=== PATIENT | female | born 1985 | race Caucasian/White ===

== ENCOUNTER 2019-04-17 08:24 | Emergency (ER) | payer OTHER, MEDICAID, SELFPAY ==
[2019-04-17 08:55] VITALS: BP 129/80; PULSE 83; RESP 14; TEMP 37; O2SAT 99
[2019-04-17 09:14] LABS: RBC Urine None Seen (0-5/HPF)
[2019-04-17 09:15] LABS: Appearance Urine UA CLEAR; Bilirubin Urine UA NEGATIVE (NEGATIVE); Color Urine UA YELLOW; Glucose Urine UA TRACE g/dL (Negative); Ketones Urine UA NEGATIVE (NEGATIVE); Leukocyte Esterase Urine UA 1+ (NEGATIVE); Nitrite Urine UA NEGATIVE (Negative); Occult Blood Urine UA NEGATIVE (Negative); Protein Urine UA NEGATIVE (Negative); Urobilinogen Urine UA 0.2 E.U./dL (0.2)
[2019-04-17 09:18] LABS: Pregnancy Test Urine Negative (Negative); pH Urine UA 5.5 (4.5-8.0)
[2019-04-17 09:25] LABS: Bacteria Urine Few (2-10); Culture Indicated Urine Specimen Cultured; Squamous Epithelial Cell Urine 1-5 /HPF (0-5/HPF); WBC Urine 1-5/HPF (0-5/HPF)
--- NOTE | 2019-04-17 11:29 | PC.NURSE ---
Chaperoned pelvic exam with CORI Roblero.
[2019-04-17 11:40] VITALS: BP 135/80; PULSE 85; RESP 14; O2SAT 98
--- NOTE | 2019-04-17 12:01 | ED.FEMALEGU ---
HPI - Female Genitourinary <TEZ Fernandez - Last Filed: 04/17/19 20:07> General Chief complaint: Urogenital-Female Stated complaint: female problems Time Seen by Provider: 04/17/19 09:11 Source: patient Mode of arrival: Ambulatory Limitations: no limitations History of Present Illness HPI Narrative: This is a 33 year female, nonsmoker, who presents to ED with chief complain of pinching sensation with sitting and she noticed bloody vaginal discharge. Last LMP was 3 weeks ago and she is usually very regular with her period. Patient has history of general herpes, HPV infection. Last Pap smear test was 1 year ago and she had cervical biopsy done. Last biopsy and Pap smear test was negative for HPV. She was advised to follow up in 5 years for routine Pap smear and HPV test. She also reports low back pain and mild discomfort with urination. Patient denies fever, chills, nausea or vomiting. She is sexually active and has no concerns for STIs. Patient recently completed 2 week course of steroids for upper respiratory infection and laryngitis. . She is currently taking metformin 500 mg b.i.d. for medical weight loss. Related Data Previous Rx's Medication Instructions Recorded metronidazole [Flagyl] 500 mg PO BID 7 Days #14 tab 04/17/19 nitrofurantoin monohyd/m-cryst 100 mg PO BID 5 Days #10 cap 04/17/19 [Macrobid] Review of Systems <TEZ Fernandez - Last Filed: 04/17/19 20:07> Review of Systems Narrative: General: Denies fever, chills, fatigue, malaise, sweats. HEENT: Denies sinus pain, ear pain, sore throat, difficulty swallowing, dizziness. Respiratory: Denies dyspnea, cough, wheezing, hemoptysis, sputum. Cardiovascular: Denies chest pain, palpitations, orthopnea, edema. Gastrointestinal: Denies nausea, vomiting, abdominal pain, diarrhea, constipation, melena. : See HPI Musculoskeletal: Denies weakness, joint pain or bony pain. Skin: Denies rash, skin lesions, or other. Neurologic: Denies weakness, headache, numbness, change in speech, confusion, seizures, incoordination. Psychiatric: No concerning psychosocial issues. 12-point review of systems is negative except for those stated above. Patient History <Osbaldo JonTEZ Crews - Last Filed: 04/17/19 20:07> Medical History HPV (human papilloma virus) anogenital infection (Acute) HSV (herpes simplex virus) anogenital infection (Acute) Surgical History H/O cervical biopsy (Acute) Smoking Status: Never smoker Substance Use Type: does not use Exam <TEZ Fernandez - Last Filed: 04/17/19 20:07> Narrative Exam Narrative: GEN: Alert, oriented x 3, well appearing and nourished, appears to be apprehensive. Head: Normal cephalic, atraumatic. No scalp or temporal tenderness, palpable mass or rash. EYES: Pupils are equal, round, and reactive to light and accommodation. Extraocular muscles are intact bilaterally. There is no subconjunctival hemorrhage, exudate and sclera non-icteric. ENT: Bilateral auditory canals and tympanic membranes clear. Hearing grossly intact. Nose without bleeding, purulent discharge or deviation. Facial sinuses nontender to palpate. Mucous membrane moist, no mucosal lesion. Throat without erythema, tonsillar hypertrophy or exudate. Uvula in midline, airway patent. Neck: Trachea in midline. No JVD, non-tender without lymphadenopathy. No masses or thyroid megaly. Supple, non-tender and no meningeal signs. CARDIAC: Normal regular rate and rhythm without murmurs, gallops, or rubs. No chest wall tenderness. No peripheral edema, cyanosis or pallor. Capillary refill is less than 2 seconds. RESPIRATORY: Lungs are clear to auscultate bilaterally. No cough, wheezes, rales, or rhonchi. No stridor, respiratory distress, increase work of breathing, or accessary muscle used. ABD: Abdomen soft, nontender and non-distended. No guarding or rebound tenderness to palpate. Bowel sounds are normal in all 4 quadrants. There is no palpable masses or organomegaly. EXT: Full painless ROM of all extremities with no loss of sensation, strength, effusion or edema. SKIN: Warm, dry, normal color for patient. No erythema, lesions or rash over visible areas. BACK: Nontender without deformity or crepitance. No flank tenderness. NEUROLOGICAL: Alert and oriented to place, time and person. Sensation and motor function intact bilaterally. No facial droops, dysphasia. PSYCHIATRIC: Good judgement and reason, without hallucinations, abnormal affect or abnormal behaviors during the examination. Patient is not suicidal. Initial Vital Signs Initial Vital Signs: Vital Signs Temperature 98.6 F 04/17/19 08:55 Pulse Rate 83 04/17/19 08:55 Respiratory Rate 14 04/17/19 08:55 Blood Pressure 129/80 04/17/19 08:55 Pulse Oximetry 99 04/17/19 08:55 General: No CVA tenderness External Female Exam: external appearance normal Speculum Exam - Vagina: normal appearance of the vagina, not erythematous, no foreign bodies, no masses and no swelling Speculum Exam - Cervix: normal appearance of the cervix, closed cervix, no lesions and cervical tenderness Bimanual Exam- Vagina & Uterus: normal bimanual exam, normal cervical palpation, uterine mobility normal, cervical tenderness, no cervical motion tenderness and uterus soft Bimanual Exam- Adnexa, other: no adnexal masses and adnexae non-tender OB/External & Speculum: external exam normal, bleeding (light blood mixed vaginal discharge), no foreign bodies, no vaginal laceration, no vulvar erythema, no vulvar tenderness and vaginal discharge <Kenyatta Bearden MD - Last Filed: 04/17/19 20:30> Initial Vital Signs Initial Vital Signs: Vital Signs Temperature 98.6 F 04/17/19 08:55 Pulse Rate 83 04/17/19 08:55 Respiratory Rate 14 04/17/19 08:55 Blood Pressure 129/80 04/17/19 08:55 Pulse Oximetry 99 04/17/19 08:55 Scores <TEZ Fernandez - Last Filed: 04/17/19 20:07> GCS [place] coma scale eye opening: Spontaneous [place] coma scale verbal response: Orientated [place] coma scale motor response: Obey commands [place] coma scale total score: 15 Course <TEZ Fernandez - Last Filed: 04/17/19 20:07> Orders Ordered: ED Orders 04/17/19 11:19 Chlamydia/Gonorrhea RNA APTIMA Stat Genital Culture Stat Wet Prep Tric BV Sanna Stat Vital Signs Vital signs: Vital Signs - 8 hr 04/17/19 08:55 04/17/19 11:40 Temperature 98.6 F Pulse Rate 83 85 Respiratory Rate 14 14 Blood Pressure 129/80 135/80 Pulse Oximetry 99 98 <Kenyatta Bearden MD - Last Filed: 04/17/19 20:30> Orders Ordered: ED Orders 04/17/19 11:19 Chlamydia/Gonorrhea RNA APTIMA Stat Genital Culture Stat Wet Prep Tric BV Sanna Stat Vital Signs Vital signs: Vital Signs - 8 hr 04/17/19 08:55 04/17/19 11:40 Temperature 98.6 F Pulse Rate 83 85 Respiratory Rate 14 14 Blood Pressure 129/80 135/80 Pulse Oximetry 99 98 MDM - Female Genitourinary <TEZ Fernandez - Last Filed: 04/17/19 20:07> Differential Diagnosis Differential diagnosis: Likely urinary tract infection, bacterial vaginosis, cervicitis, ovarian cyst, vaginitis and other (Fibroids, at topic ) Medical Records Attestation: I reviewed the patient's medical records. Lab Data Attestation: I reviewed the patient's lab results. Labs: Lab Results 04/17/19 04/17/19 Range/Units 09:05 09:05 Urine Color Yellow Urine Appearance Clear Urine pH 5.5 (4.5-8.0) Ur Specific [place] 1.020 (1.000-1.035) Urine Protein Negative (Negative) Urine Glucose (UA) Trace H (Negative) g/dL Urine Ketones Negative (NEGATIVE) Urine Occult Blood Negative (Negative) Urine Nitrate Negative (Negative) Urine Bilirubin Negative (NEGATIVE) Urine Urobilinogen 0.2 (0.2) E.U./dL Ur Leukocyte Esterase 1+ H (NEGATIVE) Urine RBC None seen (0-5/HPF) Urine WBC 1-5/hpf (0-5/HPF) Ur Squamous Epith Cells 1-5 /hpf (0-5/HPF) Urine Bacteria Few (2-10) H (None) Ur Culture Indicated? Specimen cultured Micro UA Comment Urine Test Negative (Negative) MDM Narrative Medical decision making narrative: The patient is a 33-year-old female who presents to ED with pinching sensation in her pelvic area with thin bloody vaginal discharge. LMP 3 weeks ago and the patient is sexually active but does not have concerns for STIs. Patient reports mild dysuria without constitutional symptoms but reports back pain. Urine test was negative. UA test shows urine leukoesterase without nitrites. This may due to contaminated urine sample with epithelia cells and urine is being cultured at this time. Pelvic exam shows no cervical motion tenderness or palpable adnexa noted. Pelvic exam did show thin, watery vaginal mucus mixed with light blood without lesions in external or internal genital. Patient is afebrile Wet prep test shows few clue cells. Patient has history of general herpes and HPV in the past. Patient was discharged to home with antibiotic medications for Macrobid for 5 day course and informed that she will be contacted when the general culture result comes back. Patient agrees with the treatment plan and all questions were answered prior discharged to home. Patient called during afternoon to follow up on for culture test. Patient was informed that clue cell was seen and will treat her with bacteria vaginosis with Flagyl for 7 day course. Patient verbalized understanding. Patient also informed that she will get in touch when the rest of the culture results come back and if she needs further antibiotic medication treatment or if the antibiotic medication needs change and verbalized understanding and agrees with the treatment plan. <Kenyatta Bearden MD - Last Filed: 04/17/19 20:30> Lab Data Labs: Lab Results 04/17/19 04/17/19 Range/Units 09:05 09:05 Urine Color Yellow Urine Appearance Clear Urine pH 5.5 (4.5-8.0) Ur Specific [place] 1.020 (1.000-1.035) Urine Protein Negative (Negative) Urine Glucose (UA) Trace H (Negative) g/dL Urine Ketones Negative (NEGATIVE) Urine Occult Blood Negative (Negative) Urine Nitrate Negative (Negative) Urine Bilirubin Negative (NEGATIVE) Urine Urobilinogen 0.2 (0.2) E.U./dL Ur Leukocyte Esterase 1+ H (NEGATIVE) Urine RBC None seen (0-5/HPF) Urine WBC 1-5/hpf (0-5/HPF) Ur Squamous Epith Cells 1-5 /hpf (0-5/HPF) Urine Bacteria Few (2-10) H (None) Ur Culture Indicated? Specimen cultured Micro UA Comment Urine Test Negative (Negative) Discharge Plan Departure Patient Disposition: Home Clinical Impression: Bacterial vaginosis Urinary tract infection Qualifiers: Urinary tract infection type: site unspecified Hematuria presence: without hematuria Qualified Code(s): N39.0 - Urinary tract infection, site not specified Discharge Date/Time: 04/17/19 11:40 Instructions: DI for Urinary Tract Infection (UTI) Activity Restrictions/Additional Instructions: You have been diagnosed with [urinary tract infection. Vaginal culture and urine cultures are pending at this time. Will get a phone call he needed additional antibiotic medication coverage for pelvic infection or if requires antibiotic medication medication change for UTI. The medication has been transmitted to [facility]]. What to do: *Take your medications as directed. Please start antibiotic medication today. *Follow up with your primary care provider in 2-3 days, call for an appointment. Let them know you were seen in the ED and that we asked you to be seen in follow up. 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 *Return to ED if you have any new, worsening, or concerning symptoms, such as [fever, breathing difficulty, chest pain, flank pain, purulent discharge or any acute concerns.]. The patient called and informed for clue cell in vaginal culture and RX of Flagyl sent to [facility] in [place] for bid dose for 7 days. Prescriptions: New nitrofurantoin monohyd/m-cryst [Macrobid] 100 mg capsule 100 mg PO BID 5 Days Qty: 10 RF: 0 metronidazole [Flagyl] 500 mg tablet 500 mg PO BID 7 Days Qty: 14 RF: 0 Referrals: Yoel Muñoz [Non-Staff] -
== END 2019-04-17 11:40 | disposition home or self-care (01) ==
PROVIDERS: Emergency Medicine; Emergency Provider Nurse Practitioner Family
DX: N76.0 Acute vaginitis (principal); N39.0 Urinary tract infection, site not specified
CPT/HCPCS: 81001; 81025; 87070; 87077; 87086; 87205; 87210; 87491; 87591; 99282; 99283

== ENCOUNTER 2019-06-01 08:34 | Emergency (ER) | payer OTHER, MEDICAID, SELFPAY ==
[2019-06-01 08:41] VITALS: BP 144/91; PULSE 87; RESP 16; TEMP 36.7; O2SAT 98; BMI 38.6
[2019-06-01 09:00] VITALS: BP 133/85; PULSE 80; RESP 16; O2SAT 98
[2019-06-01] MEDS: OXYCODONE/ACETAMINOPHEN 5/325 TABLET 1 TAB PO (09:58)
--- NOTE | 2019-06-01 10:11 | ED.BACK ---
HPI - Back Pain/Injury General Chief Complaint: Back Pain/Injury Stated Complaint: 'my back' Time Seen by Provider: 06/01/19 08:39 Source: patient Mode of arrival: Ambulatory Limitations: no limitations History of Present Illness HPI Narrative: Patient comes emergency department complaining of right lower back pain that started last night. Patient states that after sleeping in bed all night, her back seems to her worse. Patient states she did not do anything specifically to injure her back that she can think of. She states she was working around the house and may have aggravated it thereby. Patient states she has a history of low back problems and says this feels similar but that she also has somewhat of a sharp pain along with the usual spasming pain. She denies any dysuria or abdominal pain. No bowel or bladder incontinence. No nausea or vomiting. No fevers. No neurologic symptoms. No pain shooting down her leg. Patient is 5 weeks , and she wants to make sure of what she can safely take for the pain. No other complaints at this time. Related Data Home Medications Medication Instructions Recorded Confirmed bupropion HCl 150 mg PO DAILY 06/01/19 06/01/19 metformin 500 mg PO BID 06/01/19 Previous Rx's Medication Instructions Recorded oxycodone-acetaminophen [Percocet] 1 tab PO Q6H PRN #10 tab 06/01/19 Allergies Allergy/AdvReac Type Severity Reaction Status Date / Time citalopram [From Celexa] Allergy Verified 06/01/19 09:27 codeine Allergy Verified 06/01/19 09:27 erythromycin base Allergy Verified 06/01/19 09:27 hydrocodone Allergy Verified 06/01/19 09:27 Review of Systems Review of Systems ROS Unobtainable: All systems reviewed & are unremarkable except as noted in HPI and below Constitutional Constitutional: Denies chills, Denies fatigue, Denies fever(s), Denies frequent falls, Denies lethargy and Denies weakness Eyes Eyes: Denies change in vision, Denies eye discharge, Denies irritation and Denies loss of vision ENT Ears, Nose, Mouth, and Throat: Denies change in voice, Denies dizziness, Denies neck pain, Denies sore throat and Denies throat swelling Cardiovascular Cardiovascular: Denies chest pain, Denies irregular heart rhythm, Denies lightheadedness, Denies palpitations, Denies dyspnea, Denies dyspnea on exertion and Denies orthopnea Respiratory Respiratory: Denies cough, Denies dyspnea, Denies dyspnea on exertion and Denies wheezing Gastrointestinal Gastrointestinal: Denies abdominal pain, Denies change in bowel habits, Denies diarrhea, Denies nausea and Denies vomiting Genitourinary Genitourinary: Denies hematuria, Denies flank pain, Denies urinary incontinence and Denies urinary urgency Musculoskeletal Musculoskeletal: Reports back pain, Denies muscle weakness, Denies neck pain, Denies numbness and Denies tingling Integumentary/Breasts Skin/Breast: Denies pruritus, Denies erythema, Denies rash and Denies wounds Neurologic Neurologic: Denies behavioral changes, Denies confusion, Denies dizziness, Denies frequent falls, Denies loss of vision, Denies numbness, Denies tingling and Denies weakness Psychiatric Psychiatric: Denies anxiety, Denies behavioral changes, Denies confusion, Denies depression, Denies homicidal ideation and Denies suicidal ideation Endocrine Endocrine: Denies fatigue, Denies flushing and Denies palpitations Hematologic/Lymphatic Hematologic/Lymphatic: Denies easy bruising Allergic/Immunologic Allergic/Immunologic: Denies urticaria, Denies throat swelling and Denies wheezing Patient History Medical History (Updated 06/01/19 @ 10:30 by Kenyatta Bearden MD) Chronic low back pain (Acute) HPV (human papilloma virus) anogenital infection (Acute) HSV (herpes simplex virus) anogenital infection (Acute) Surgical History H/O cervical biopsy (Acute) Social History Smoking Status: Never smoker Smoking Status: Never smoker Substance Use Type: does not use Exam Initial Vital Signs Initial Vital Signs: Vital Signs Temperature 98.0 F 06/01/19 08:41 Pulse Rate 87 06/01/19 08:41 Respiratory Rate 16 06/01/19 08:41 Blood Pressure 144/91 H 06/01/19 08:41 Pulse Oximetry 98 06/01/19 08:41 Const General: cooperative and well developed Nutritional Appearance: well nourished Orientation: alert, awake, oriented x3 and not confused [facility] Head: normocephalic and atraumatic Ears: external ears normal Nose: external nose normal and No nasal discharge Face and sinus: face symmetric and No dry mucous membranes Mouth: oral mucosae normal and moist mucous membranes Teeth and gingiva: dentition normal Eyes General: appearance normal, both eyes and all related structures Eyelids: eyelids normal Conjunctivae: conjunctivae normal Sclera: sclerae normal Pupils: PERRL EOM: EOM intact bilaterally Neck Neck: normal visual inspection, trachea midline, No lymphadenopathy, No midline deformity and No JVD Lymphatic: No lymphedema Chest Chest: normal inspection of the chest Resp Effort & Inspection: normal respiratory effort, able to speak in complete sentences, no respiratory distress and no use of accessory muscles Auscultation: clear to auscultation bilaterally, no rales, no rhonchi and no wheezes Cardio Rate: regular rate Rhythm: regular rhythm Heart Sounds: no click, no gallops, no murmurs and no rubs Pulses: normal peripheral pulses GI Inspection: non-distended Palpation: soft, no hepatosplenomegaly, No guarding, No pulsatile mass and No tender Auscultation: normal bowel sounds Back/Spine/Pelvis Back: No CVA tenderness Cervical Spine: cervical ROM normal and No pain with cervical ROM Thoracic/Lumbar Spine: thoracic and lumbar spine normal to inspection Other: Patient has mild tenderness palpation over the right lumbar paraspinal musculature. Skin General: no rashes or lesions noted, No jaundice and No petechiae Neuro General: alert, oriented x3 and no focal motor deficits Cranial Nerves: CN's II-XI intact bilaterally Cognition: normal cognition Speech: speech normal Gait: other (Patient walks stiffly but steadily on a narrow based gait.) Motor: muscle tone normal throughout and strength 5/5 throughout Sensory Exam: no sensory deficits noted Extrem General: full ROM, no clubbing, cyanosis or edema, no pedal edema and no calf tenderness Psych Appearance: well kempt Mental Status: mental status grossly normal Attitude: cooperative Thought Content: normal and suicidality Judgment: judgment good Course Course Course Narrative: Patient was treated symptomatically in the emergency department with a dose of oxycodone, after which was found to be feeling improved. We've discussed home management of the symptoms, as well as the usual indications for return. The patient is and has OB follow-up already. Orders Ordered: Discontinued Medications Ondansetron HCl (Zofran Odt) 4 mg SL NOW ONE Stop: 06/01/19 10:41 Last Admin: 06/01/19 10:45 Dose: 4 mg Documented by: ARTURO Oxycodone/Acetaminophen (Percocet 5/325) 1 tab PO NOW ONE Stop: 06/01/19 09:35 Last Admin: 06/01/19 09:58 Dose: 1 tab Documented by: BTONER Vital Signs Vital signs: Vital Signs - 8 hr 06/01/19 08:41 06/01/19 09:00 Temperature 98.0 F Pulse Rate 87 80 Respiratory Rate 16 16 Blood Pressure 144/91 H Blood Pressure [Left Arm] 133/85 Pulse Oximetry 98 98 MDM - Back Pain/Injury Medical Records Attestation: I reviewed the patient's medical records. Lab Data Attestation: I reviewed the patient's lab results. Labs: Point of Care Testing Test Results Positive Urine Dip Bedside Urine Glucose 250 mg/dl Bedside Urine Bilirubin - Negative Bedside Urine Ketone - Negative Urine Specific [place] 1.010 Bedside Urine Occult Blood - Negative Bedside Urine pH 7.0 Bedside Urine Protein - Negative Bedside Urine Urobilinogen - Negative Bedside Urine Nitrite - Negative Bedside Urine Leukocytes - Negative Esterase Discharge Plan Departure Patient Disposition: Home Clinical Impression: Acute exacerbation of chronic low back pain Discharge Date/Time: 06/01/19 11:07 Instructions: DI for Low Back Pain Activity Restrictions/Additional Instructions: You may take 1/2 to 1 tablets of the Percocet every 4-6 hours, as needed for pain. Please minimize this, considering that you are , and use only if your pain gets bad. Otherwise, you may use plain Tylenol. Prescriptions: New oxycodone-acetaminophen [Percocet] 5-325 mg tablet 1 tab PO Q6H PRN (Reason: pain) Qty: 10 RF: 0 No Action metformin 500 mg tablet 500 mg PO BID RF: 0 bupropion HCl 150 mg tablet extended release 24 hr 150 mg PO DAILY RF: 0 Referrals: [facility] [Provider Group]
[2019-06-01] MEDS: ONDANSETRON 4 MG ODT SL (10:45)
[2019-06-01 10:47] VITALS: BP 137/87; PULSE 80; RESP 16; O2SAT 99
== END 2019-06-01 11:07 | disposition home or self-care (01) ==
PROVIDERS: Emergency Provider Emergency Medicine
DX: M54.5 Low back pain (principal)
CPT/HCPCS: 81003; 81025; 99282; 99283

== ENCOUNTER → 2019-06-27 12:06 | Outpatient (CLI) | payer OTHER, MEDICAID, SELFPAY ==
[2019-06-27 18:11] LABS: Urine N gonorrhoeae NOT DETECTED
[2019-06-27 18:13] LABS: Urine Chlamydia NOT DETECTED
== END ==
PROVIDERS: Visit Provider Obstetrics & Gynecology
DX: Z34.81 Encounter for supervision of other normal pregnancy, first trimester (principal)
CPT/HCPCS: 87491; 87591

== ENCOUNTER → 2019-06-27 12:27 | Outpatient (CLI) | payer OTHER, MEDICAID, SELFPAY ==
[2019-06-27 14:05] LABS: Add Manual Diff / Slide Review NO; Basophils Absolute Auto 0 /uL (0-100); Basophils Percent Auto 0.3 % (0-2); Eosinophils Absolute Auto 100 /uL (0-450); Eosinophils Percent Auto 1.2 % (2-4); Hematocrit 41.5 % (36-46); Hemoglobin 14.3 g/dL (12.0-16.0); Lymphocytes Absolute Auto 2200 /uL (1100-4500); Lymphocytes Percent Auto 26.5 % (25-40); Mean Corpuscular HGB Conc 34.4 % (30-36); Mean Corpuscular Hemoglobin 30.5 PG (26-34); Mean Corpuscular Volume 88.6 fL (80-100); Monocytes Absolute Auto 600 /uL (0-900); Monocytes Percent Auto 7.9 % (3-14); Neutrophils Absolute Auto 5200 /uL (1500-7000); Neutrophils Percent Auto 64.1 % (50-75); Platelet Count 229 X10^3/uL (150-400); Red Blood Cell Count 4.68 X10^6/uL (4.0-5.2); Red Cell Distribution Width 12.7 % (11.6-14.8); White Blood Cell Count 8.1 X10^3/uL (4.5-11.0)
[2019-06-27 14:14] LABS: Hemoglobin A1C% w Est Avg Glu 5.8 % (4.0-6.0)
[2019-06-27 14:26] LABS: Glucose 98 mg/dL (70-100)
[2019-06-27 15:08] LABS: Hepatitis B Surface Antigen NEGATIVE s/c (NEGATIVE); Rubella Antibody IgG 7.4 IU/mL (>15)
[2019-06-27 15:16] LABS: HIV 1 & 2 Ab/Ag 4th Gen Combo NEGATIVE (NEGATIVE); Hep C Virus Ab w/Reflex Quant NEGATIVE s/c (NEGATIVE)
[2019-06-27 16:03] LABS: Appearance Urine UA CLEAR; Bilirubin Urine UA NEGATIVE (NEGATIVE); Color Urine UA YELLOW; Glucose Urine UA 1+ g/dL (Negative); Ketones Urine UA NEGATIVE (NEGATIVE); Leukocyte Esterase Urine UA NEGATIVE (NEGATIVE); Nitrite Urine UA NEGATIVE (Negative); Occult Blood Urine UA NEGATIVE (Negative); Protein Urine UA NEGATIVE (Negative)
[2019-06-29 14:34] LABS: HSV 1 IgM Screen Negative (Negative); HSV 2 IgM Screen Negative (Negative)
[2019-06-29 18:00] LABS: RPR Screen Nonreactive (Nonreactive)
== END ==
PROVIDERS: PCP Obstetrics & Gynecology; Visit Provider Obstetrics & Gynecology
DX: Z34.81 Encounter for supervision of other normal pregnancy, first trimester (principal)
CPT/HCPCS: 36415; 80055; 81003; 82947; 83036; 86695; 86696; 86787; 86803; 86850; 86900; 86901; 87086; 87389; 87491; 87591

== ENCOUNTER → 2019-07-10 11:07 | Outpatient (CLI) | payer OTHER, MEDICAID, SELFPAY ==
[2019-07-10 13:54] LABS: GTT (PREG) 1 Hour PP 50gm Dose 185 mg/dL (76-139)
[2019-07-10 14:11] LABS: Free T4, Direct Thyroxine 0.75 ng/dL (0.78-2.19)
[2019-07-10 14:25] LABS: Thyroid Stimulating Hormone 0.42 uIU/mL (0.47-4.68)
== END ==
PROVIDERS: PCP Obstetrics & Gynecology; Visit Provider Obstetrics & Gynecology
DX: E04.9 Nontoxic goiter, unspecified (principal); Z86.32 Personal history of gestational diabetes
CPT/HCPCS: 36415; 82950; 84439; 84443

== ENCOUNTER → 2019-07-14 08:33 | Outpatient (CLI) | payer OTHER, MEDICAID, SELFPAY | PROVIDERS: Visit Provider Obstetrics & Gynecology | DX: O09.529 Supervision of elderly multigravida, unspecified trimester (principal); Z34.91 Encounter for supervision of normal pregnancy, unspecified, first trimester | CPT/HCPCS: 36415; 81420 ==

== ENCOUNTER → 2019-07-18 08:31 | Outpatient (CLI) | payer OTHER, MEDICAID, SELFPAY ==
[2019-07-18 10:19] LABS: Glucose Fasting 102 mg/dL (70-100)
[2019-07-18 10:44] LABS: Glucose 1 Hour 245 mg/dL (70-170)
[2019-07-18 11:49] LABS: Glucose Tol Interpretation INTERPRETATION
[2019-07-18 12:29] LABS: Glucose 2 Hour 222 mg/dL (70-140)
[2019-07-18 12:50] LABS: Glucose 3 Hour 116 mg/dL (70-115)
== END ==
PROVIDERS: PCP Physician Assistant Medical; Referring Provider Obstetrics & Gynecology; Visit Provider Obstetrics & Gynecology
DX: O99.810 Abnormal glucose complicating pregnancy (principal); Z34.93 Encounter for supervision of normal pregnancy, unspecified, third trimester
CPT/HCPCS: 36415; 82951; 82952

== ENCOUNTER 2019-07-21 05:40 | Emergency (ER) | payer OTHER, MEDICAID, SELFPAY ==
[2019-07-21 05:46] VITALS: BP 138/71; PULSE 107; RESP 20; TEMP 36.3; O2SAT 97
--- NOTE | 2019-07-21 05:56 | DI.US.S_ITS ---
PROCEDURE: US OB <= 14 WEEKS FETUS INDICATIONS: SEVERE CRAMPING OUTSIDE/PRIOR DATING DATA: Last menstrual period (LMP): 04/24/19. LMP-based estimated date of delivery (MACO): 01/29/20. First dating scan (date and location): 07/21/19, [facility] Estimated date of delivery (MACO) from first dating scan: 01/28/20. TECHNIQUE: Real-time scanning was performed of the fetus and maternal pelvic organs, with image documentation. Endovaginal scanning was also performed to better visualize the fetus and maternal ovaries. COMPARISON: [facility], , OB <= 14 WEEKS FETUS, 06/27/2019, 12:09. FINDINGS: Embryo: [place]-rump length with a heartbeat measuring 6.37 cm, 12 weeks 5 days, with a heartbeat measuring 150 beats per minute Measurement variability in dating: +/- 4 weeks by LMP, +/- 7 days by mean sac diameter (use before 6 weeks gestation if crown-rump length not able to be measured), +/- 5 days by crown-rump length (up to 8 weeks 6 days gestation), +/- 7 days by crown-rump length (up to 13 weeks 6 days gestation). Maternal organs: Ovaries not visualized. Limited images through the kidneys demonstrate no hydronephrosis. IMPRESSION: Living late first trimester intrauterine with crown-rump length and heartbeat. Dictated by: Surinder Li M.D. on 07/21/2019 at 8:15 Approved by: Surinder Li M.D. on 07/21/2019 at 8:18
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
[2019-07-21] MEDS: SODIUM CHLORIDE 0.9% 1,000 ML 1000 ML IV ×2 (06:20→07:39)
[2019-07-21 06:23] LABS: Add Manual Diff / Slide Review NO; Basophils Absolute Auto 0 /uL (0-100); Basophils Percent Auto 0.4 % (0-2); Eosinophils Absolute Auto 100 /uL (0-450); Hematocrit 40.9 % (36-46); Hemoglobin 14.2 g/dL (12.0-16.0); Lymphocytes Absolute Auto 2700 /uL (1100-4500); Lymphocytes Percent Auto 24.7 % (25-40); Mean Corpuscular HGB Conc 34.6 % (30-36); Mean Corpuscular Hemoglobin 30.3 PG (26-34); Mean Corpuscular Volume 87.8 fL (80-100); Monocytes Absolute Auto 700 /uL (0-900); Monocytes Percent Auto 6.7 % (3-14); Neutrophils Absolute Auto 7500 /uL (1500-7000); Neutrophils Percent Auto 67.2 % (50-75); Platelet Count 223 X10^3/uL (150-400); Red Blood Cell Count 4.66 X10^6/uL (4.0-5.2); Red Cell Distribution Width 12.9 % (11.6-14.8); White Blood Cell Count 11.1 X10^3/uL (4.5-11.0)
--- NOTE | 2019-07-21 06:23 | PC.NURSE ---
Pt in triage with triage nurse, pt became lightheaded and diaphoretic. able to get patient to w/c at into bed. EKG was ordered, bs checked, and IV started. after patient was laid flat in bed, pt started to feel better.
[2019-07-21 06:30] LABS: Alanine Aminotransferase 17 IU/L (<35); Albumin 4.2 g/dL (3.5-5.0); Albumin Globulin Ratio 1.3 (1.0-2.8); Alkaline Phosphatase 48 U/L (38-126); Aspartate Aminotransferase 20 IU/L (14-36); Bilirubin Total 0.6 mg/dL (0.2-1.3); Blood Urea Nitrogen 7 mg/dL (7-17); Calcium 9.9 mg/dL (8.4-10.2); Carbon Dioxide 21 mmol/L (22-32); Chloride 101 mmol/L (98-107); Estimated Glomerular Filt Rate > 60.0 mL/min (>60); Globulin 3.3 g/dL (1.7-4.1); Glucose 147 mg/dL (70-100); HEMOLYSIS 16 (0-50); Lipase 53 U/L (23-300); Potassium 3.5 mmol/L (3.4-5.1); Sodium 134 mmol/L (137-145); Total Protein 7.5 g/dL (6.3-8.2)
[2019-07-21 07:12] LABS: HCG Quantitative /Beta subunit 56252 mIU/mL
--- NOTE | 2019-07-21 07:25 | PC.NURSE ---
Answered pts call gayathri, stated she needed to have a BM. Assisted pt to bedside commode. While on commode pt stated she felt like she was going to pass out again. With PRESSER MACHINE and RN assistance pt returned to bed. Dr. Cavazos informed and ordered more IV fluids.
[2019-07-21 07:30] VITALS: BP 129/76; PULSE 98; RESP 12; O2SAT 98
[2019-07-21 08:04] LABS: Bacteria Urine Many (>30); Ictotest Urine Negative (Negative); RBC Urine None Seen (0-5/HPF); Squamous Epithelial Cell Urine 10-30 /HPF (0-5/HPF); Uric Acid Crystals Urine Few; WBC Urine 1-5/HPF (0-5/HPF)
[2019-07-21 08:05] LABS: Culture Indicated Urine Cult Not Indicated
[2019-07-21] MEDS: ACETAMINOPHEN 325 MG TABLET 975 MG PO (08:10)
[2019-07-21] MEDS: METOCLOPRAMIDE 10 MG/2 ML INJ IV (08:11)
--- NOTE | 2019-07-21 08:20 | PC.NURSE ---
Pt had moderate amount of stool with BM. Also urinated.
[2019-07-21 09:00] VITALS: BP 133/86; PULSE 98; RESP 15; O2SAT 99
--- NOTE | 2019-07-21 09:15 | PC.NURSE ---
Pt had 3 large loose bowel movements.
--- NOTE | 2019-07-21 10:05 | PC.NURSE ---
Pt used bedside commode. States she feels much better. No longer cramping at this time.
[2019-07-21 10:25] VITALS: BP 122/80; PULSE 98; RESP 18; O2SAT 98
== END 2019-07-21 10:25 | disposition home or self-care (01) ==
PROVIDERS: Emergency Medicine; Emergency Provider Emergency Medicine; PCP Physician Assistant Medical
DX: O26.891 Other specified pregnancy related conditions, first trimester (principal); K59.00 Constipation, unspecified; R00.0 Tachycardia, unspecified; Z3A.12 12 weeks gestation of pregnancy
CPT/HCPCS: 36415; 76801; 76817; 80053; 81003; 81015; 82962; 83690; 84443; 84702; 85025; 93005; 96361; 96374; 99285; J2765

== ENCOUNTER → 2019-08-22 12:14 | Outpatient (CLI) | payer OTHER, MEDICAID, SELFPAY ==
--- NOTE | 2019-08-22 14:33 | DIET.PN ---
INITIAL GESTATIONAL DIABETES ASSESSMENT ASSESS:? Mrs. Vincent is a 34 yof referred for Gestational Diabetes. She is 16 weeks 2 days by first-trimester ultrasound. Patient's is complicated by pre gestational diabetes, for which she is being seen at the [facility]. Patient has history of preeclampsia and GDM with prior . She has an A1c of 5.8 (Jun 2019) and has been monitoring her BG 6-8x/day related to her medication regimen. She requested visit with this RD as she admits she does not truly understand carbohydrate counting and is eager to control her blood glucose without use of additional medication. She was recently seen in the ED for constipation which she is now taking Reglan and Metamucil for. Her diet consists of primarily starches, starchy vegetables, milk, Dr. Gurrola and protein. ? MACO:?Jan [birth year] ? WKS GESTATION:?? 16 or 17 wks ?LABS: A1c: 5.8; OGTT 1 hr: 185 FB-99 pre-meal: 90-120 1hr PP: 95-200 ? MEDS: metf 1000 mg BID; lantus 26 u pm; Novolog 2 u brkfst; reglan PRN SUPPLEMENTS: vit, vit B, magnesium, Metamucil ? DIET:? B: toast w/ PB; taco trinh crunchwrap; pancakes w/ pb; eggs, mancuso, cheese, potato hash L: [employer] blueberry muffin w/ milk D: steak or chicken w/ pasta, potatoes, corn ? HT:? 65? PRE-PREG WT:? 232lb ? PRE-PREG BMI:??? 38.6 ? CURRENT WT : 240 lb ? TOTAL WT GAIN:? 8 lb EXERCISE: walking (when not too tired) NUTRITION DX 1. Altered nutrition related lab values r/t gestational diabetes as evidenced by recent labs (OGGT). INTERVENTION 1. Discussed pathophysiology of gestational diabetes and impact of hormone and nutrition/diet on blood sugar control.? Discussed fed versus non-fed state.? 2. Recommended checking fasting, premeal and 1hr post prandial (3x/day).? Discussed goals for glycemic control (<95 FBG, <140 1-hr PP).? 3. Discussed the effect of carbohydrates/protein/fat on blood sugar control.? Stressed importance of consistent carbohydrate intake at each meal and provided instructions for recommended servings/portions of carbohydrates/protein per meal.? Provided pt with educational material. 4. Introduced carbohydrate counting and measuring carbohydrate content via servings sizes and reading nutrition labels.? Provided handouts.? Pt will need further review 5. Discussed importance of meal timing and not going >3 hours between meals.? Provided sample meal schedule for pt.? Pt agreeable.?? 6. Discussed importance a pre-lucia vitamin and including food sources of calcium, vitamin D, iron and folic acid for baby and mother?s nutrition support. 7. Discussed caffeine intake. Recommend no more than 200 mg/day (1 cup coffee). 8. Discussed rule of 15 for hypoglycemia. 9. Recommend patient purchase Urine Ketone strips and instructed on use and when to contact provider. 10.Recommended patient continue exercise as appropriate per PCP approval. 11.Patient may need medication management, will follow-up with plan of care at next visit after reviewing glucose results.? MONITOR/EVAL: Follow up scheduled X 1 week. Good compliance expected. Review: carb sources, carb counting, portion size, meal timing, BG log, weight.
== END ==
PROVIDERS: PCP Physician Assistant Medical; Referring Provider Physician Assistant Medical; Visit Provider Physician Assistant Medical
DX: O24.415 Gestational diabetes mellitus in pregnancy, controlled by oral hypoglycemic drugs (principal); Z3A.16 16 weeks gestation of pregnancy; Z71.3 Dietary counseling and surveillance
CPT/HCPCS: G0108

== ENCOUNTER → 2019-08-24 08:38 | Outpatient (CLI) | payer OTHER, MEDICAID, SELFPAY ==
[2019-08-24 09:22] LABS: Add Manual Diff / Slide Review NO; Basophils Absolute Auto 0 /uL (0-100); Basophils Percent Auto 0.2 % (0-2); Eosinophils Absolute Auto 100 /uL (0-450); Eosinophils Percent Auto 1.2 % (2-4); Hematocrit 39.2 % (36-46); Hemoglobin 13.4 g/dL (12.0-16.0); Lymphocytes Absolute Auto 1800 /uL (1100-4500); Lymphocytes Percent Auto 16.8 % (25-40); Mean Corpuscular HGB Conc 34.2 % (30-36); Mean Corpuscular Hemoglobin 30.4 PG (26-34); Mean Corpuscular Volume 88.9 fL (80-100); Monocytes Absolute Auto 600 /uL (0-900); Monocytes Percent Auto 5.4 % (3-14); Neutrophils Absolute Auto 8100 /uL (1500-7000); Neutrophils Percent Auto 76.4 % (50-75); Platelet Count 203 X10^3/uL (150-400); Red Blood Cell Count 4.41 X10^6/uL (4.0-5.2); Red Cell Distribution Width 12.8 % (11.6-14.8); White Blood Cell Count 10.6 X10^3/uL (4.5-11.0)
[2019-08-24 09:49] LABS: Hemoglobin A1C% w Est Avg Glu 5.5 % (4.0-6.0)
[2019-08-24 10:08] LABS: Alanine Aminotransferase 19 IU/L (<35); Aspartate Aminotransferase 23 IU/L (14-36); Blood Urea Nitrogen 9 mg/dL (7-17); Estimated Glomerular Filt Rate > 60.0 mL/min (>60); Uric Acid 3.8 mg/dL (2.5-6.2)
== END ==
PROVIDERS: PCP Physician Assistant Medical; Referring Provider Obstetrics & Gynecology; Visit Provider Obstetrics & Gynecology
DX: Z34.90 Encounter for supervision of normal pregnancy, unspecified, unspecified trimester (principal)
CPT/HCPCS: 36415; 83036; 84450; 84460; 84550; 85025

== ENCOUNTER 2019-10-06 19:30 | Outpatient (CLI) | payer OTHER, MEDICAID, SELFPAY ==
--- NOTE | 2019-10-06 19:41 | PM.OBTRLD ---
Visit Information Visit Information Date of evaluation: 10/06/19 Primary OB Provider: Tanya Wiseman On-call OB Provider: Barbie Siegel Comments/Additional reasons for admission: Throughout the day, the pt has felt increased pelvic pressure that is constant. Then, this evening, she had some light bleeding present when wiping only after using the restroom. Very light red to pink in color. She has been feeling baby move regularly. No LOF. No cramping/contractions. The pt does report having urinary urgency and frequency for the past week that has been worsening. [facility] Social History marital status: unmarried,living together number of children: 2 household members: significant other and children pets and animals: Yes ( cats indoor and aware) education level: master's degree occupational status: employed current occupational exposures/hazards: No laura/pentecostal: Buddhist special laura needs: No Smoking Status: Former smoker Tobacco: How many years used: 3 second hand exposure: No alcohol intake: former substance use type: does not use Evaluation Evaluation Baseline heart rate: 130 Diagnosis, Plan/Disposition Final Diagnosis (1) 22 weeks gestation of : Current Visit: Yes Status: Acute (2) UTI (urinary tract infection): Current Visit: Yes Status: Acute Plan/Disposition Plan: No further bleeding in the last 2+ hours. U/A does have 2+ blood and 1+ LE, pt with urinary frequency and urgency but no flank pain. Most likely UTI, low suspicion for kidney stone. Will treat empirically, f/u on urine culture. No contractions seen on tocometer. Bleeding on tissue most likely from urethra/urine. OB Disposition: home
[2019-10-06 20:22] LABS: Appearance Urine UA CLOUDY; Bilirubin Urine UA NEGATIVE (NEGATIVE); Color Urine UA YELLOW; Glucose Urine UA NEGATIVE (Negative); Ketones Urine UA 1+ (NEGATIVE); Leukocyte Esterase Urine UA 1+ (NEGATIVE); Nitrite Urine UA NEGATIVE (Negative); Occult Blood Urine UA 2+ (Negative); Protein Urine UA NEGATIVE (Negative); Urobilinogen Urine UA 0.2 E.U./dL (0.2)
[2019-10-06 20:36] LABS: pH Urine UA 5.5 (4.5-8.0)
[2019-10-06 20:37] LABS: Bacteria Urine Moderate (10-30); Culture Indicated Urine Specimen Cultured; RBC Urine 1-5/HPF (0-5/HPF); Squamous Epithelial Cell Urine 1-5 /HPF (0-5/HPF); WBC Urine 5-10/HPF (0-5/HPF)
== END 2019-10-06 20:52 | disposition home or self-care (01) ==
LOC: OB 10-09 12:51
PROVIDERS: PCP Physician Assistant Medical; Referring Provider Family Medicine; Visit Provider Family Medicine
DX: O23.42 Unspecified infection of urinary tract in pregnancy, second trimester (principal); O09.522 Supervision of elderly multigravida, second trimester; O26.22 Pregnancy care for patient with recurrent pregnancy loss, second trimester; Z3A.23 23 weeks gestation of pregnancy
CPT/HCPCS: 59025; 81001; 87086; G0378; G0379

== ENCOUNTER 2019-12-05 10:32 | Outpatient (CLI) | payer OTHER, MEDICAID, SELFPAY ==
[2019-12-05 11:19] LABS: WBC Urine None Seen (0-5/HPF)
[2019-12-05 11:22] LABS: Appearance Urine UA CLEAR; Bilirubin Urine UA NEGATIVE (NEGATIVE); Color Urine UA YELLOW; Glucose Urine UA 1+ g/dL (Negative); Ketones Urine UA 1+ (NEGATIVE); Leukocyte Esterase Urine UA NEGATIVE (NEGATIVE); Nitrite Urine UA NEGATIVE (Negative); Occult Blood Urine UA NEGATIVE (Negative); Protein Urine UA NEGATIVE (Negative); Specific Gravity Urine UA 1.015 (1.000-1.035); Urobilinogen Urine UA 0.2 E.U./dL (0.2)
[2019-12-05 11:24] LABS: pH Urine UA 7.5 (4.5-8.0)
[2019-12-05 11:34] LABS: Bacteria Urine Few (2-10); Culture Indicated Urine Cult Not Indicated; RBC Urine 0-1/HPF (0-5/HPF); Squamous Epithelial Cell Urine 5-10 /HPF (0-5/HPF)
== END 2019-12-05 11:40 | disposition home or self-care (01) ==
LOC: LABOR 11:21 → OB 12-07 13:03
PROVIDERS: PCP Physician Assistant Medical; Referring Provider Obstetrics & Gynecology; Visit Provider Obstetrics & Gynecology
DX: O24.113 Pre-existing type 2 diabetes mellitus, in pregnancy, third trimester (principal); O26.23 Pregnancy care for patient with recurrent pregnancy loss, third trimester; O09.523 Supervision of elderly multigravida, third trimester; Z3A.32 32 weeks gestation of pregnancy
CPT/HCPCS: 59025; 81001; G0378; G0379

== ENCOUNTER 2019-12-07 09:55 | Outpatient (CLI) | payer OTHER, MEDICAID, SELFPAY ==
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
== END 2019-12-07 11:10 | disposition home or self-care (01) ==
LOC: LABOR 10:22 → OB 12-08 10:53
PROVIDERS: PCP Physician Assistant Medical; Referring Provider Family Medicine; Visit Provider Family Medicine
DX: O24.419 Gestational diabetes mellitus in pregnancy, unspecified control (principal); O26.23 Pregnancy care for patient with recurrent pregnancy loss, third trimester; O09.523 Supervision of elderly multigravida, third trimester; Z3A.32 32 weeks gestation of pregnancy
CPT/HCPCS: 59025; G0378; G0379

== ENCOUNTER 2019-12-14 09:59 | Outpatient (CLI) | payer OTHER, MEDICAID, SELFPAY ==
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
== END 2019-12-14 11:05 | disposition home or self-care (01) ==
LOC: LABOR 10:23 → OB 12-18 10:44
PROVIDERS: PCP Physician Assistant Medical; Referring Provider Nurse Practitioner Obstetrics & Gynecology; Visit Provider Nurse Practitioner Obstetrics & Gynecology
DX: O24.414 Gestational diabetes mellitus in pregnancy, insulin controlled (principal); O09.523 Supervision of elderly multigravida, third trimester; O26.23 Pregnancy care for patient with recurrent pregnancy loss, third trimester; Z3A.33 33 weeks gestation of pregnancy
CPT/HCPCS: 59025; G0378; G0379

== ENCOUNTER 2019-12-18 10:04 | Outpatient (CLI) | payer OTHER, MEDICAID, SELFPAY ==
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
== END 2019-12-18 11:15 | disposition home or self-care (01) ==
LOC: LABOR 10:39 → OB 12-20 14:45
PROVIDERS: PCP Physician Assistant Medical; Referring Provider Obstetrics & Gynecology; Visit Provider Obstetrics & Gynecology
DX: O24.414 Gestational diabetes mellitus in pregnancy, insulin controlled (principal); O09.523 Supervision of elderly multigravida, third trimester; O26.23 Pregnancy care for patient with recurrent pregnancy loss, third trimester; Z3A.34 34 weeks gestation of pregnancy
CPT/HCPCS: 59025; G0378; G0379

== ENCOUNTER 2019-12-20 12:46 | Outpatient (CLI) | payer OTHER, MEDICAID, SELFPAY ==
[2019-12-20 13:23] LABS: Add Manual Diff / Slide Review NO; Basophils Absolute Auto 0 /uL (0-100); Basophils Percent Auto 0.4 % (0-2); Eosinophils Absolute Auto 100 /uL (0-450); Eosinophils Percent Auto 0.7 % (2-4); Hematocrit 35.8 % (36-46); Hemoglobin 12.2 g/dL (12.0-16.0); Lymphocytes Absolute Auto 1600 /uL (1100-4500); Lymphocytes Percent Auto 17.8 % (25-40); Mean Corpuscular Hemoglobin 30.6 PG (26-34); Mean Corpuscular Volume 89.9 fL (80-100); Monocytes Absolute Auto 700 /uL (0-900); Neutrophils Absolute Auto 6800 /uL (1500-7000); Neutrophils Percent Auto 73.1 % (50-75); Platelet Count 185 X10^3/uL (150-400); Red Blood Cell Count 3.98 X10^6/uL (4.0-5.2); Red Cell Distribution Width 13.6 % (11.6-14.8); White Blood Cell Count 9.2 X10^3/uL (4.5-11.0)
[2019-12-20 13:35] LABS: Alanine Aminotransferase 11 IU/L (<35); Albumin 3.4 g/dL (3.5-5.0); Albumin Globulin Ratio 1.1 (1.0-2.8); Alkaline Phosphatase 83 U/L (38-126); Aspartate Aminotransferase 20 IU/L (14-36); BUN Creatinine Ratio 17.5 (6-22); Bilirubin Total 0.4 mg/dL (0.2-1.3); Bilirubin Unconjugated 0.3 mg/dL (0.0-1.1); Blood Urea Nitrogen 7 mg/dL (7-17); Calcium 9.2 mg/dL (8.4-10.2); Carbon Dioxide 24 mmol/L (22-32); Chloride 106 mmol/L (98-107); Estimated Glomerular Filt Rate > 60.0 mL/min (>60); Glucose 82 mg/dL (70-100); HEMOLYSIS < 15 (0-50); Potassium 4.3 mmol/L (3.4-5.1); Sodium 135 mmol/L (137-145); Total Protein 6.4 g/dL (6.3-8.2); Uric Acid 3.4 mg/dL (2.5-6.2)
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
== END 2019-12-20 13:30 | disposition home or self-care (01) ==
LOC: LABOR 13:22 → OB 12-22 12:44
PROVIDERS: PCP Physician Assistant Medical; Referring Provider Obstetrics & Gynecology; Visit Provider Obstetrics & Gynecology
DX: O24.414 Gestational diabetes mellitus in pregnancy, insulin controlled (principal); O09.523 Supervision of elderly multigravida, third trimester; O26.23 Pregnancy care for patient with recurrent pregnancy loss, third trimester; Z3A.34 34 weeks gestation of pregnancy
CPT/HCPCS: 36415; 59025; 80053; 80076; 84550; 85025; G0378; G0379

== ENCOUNTER 2019-12-27 22:10 | Observation (INO) | payer OTHER, MEDICAID, SELFPAY ==
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
[2019-12-27 23:07] LABS: Add Manual Diff / Slide Review NO; Basophils Absolute Auto 0 /uL (0-100); Basophils Percent Auto 0.4 % (0-2); Eosinophils Absolute Auto 100 /uL (0-450); Hematocrit 35.2 % (36-46); Lymphocytes Absolute Auto 2200 /uL (1100-4500); Lymphocytes Percent Auto 21.7 % (25-40); Mean Corpuscular Hemoglobin 30.7 PG (26-34); Mean Corpuscular Volume 90.4 fL (80-100); Monocytes Absolute Auto 1000 /uL (0-900); Monocytes Percent Auto 9.4 % (3-14); Neutrophils Absolute Auto 7000 /uL (1500-7000); Neutrophils Percent Auto 67.5 % (50-75); Platelet Count 173 X10^3/uL (150-400); Red Cell Distribution Width 13.8 % (11.6-14.8); White Blood Cell Count 10.4 X10^3/uL (4.5-11.0)
[2019-12-27 23:13] LABS: Aspartate Aminotransferase 19 IU/L (14-36); BUN Creatinine Ratio 15.2 (6-22); Blood Urea Nitrogen 7 mg/dL (7-17); Estimated Glomerular Filt Rate > 60.0 mL/min (>60); Uric Acid 3.5 mg/dL (2.5-6.2)
[2019-12-28 00:07] LABS: Creatinine Urine Random 184.5 mg/dL; Protein (Total) Urine Random 6 mg/dL (0-12); Protein Creatinine Ratio Urine 0.03 GRAM/24H
== END 2019-12-28 00:20 | disposition home or self-care (01) ==
LOC: LABOR 22:19
PROVIDERS: Admitting Provider Specialist; PCP Physician Assistant Medical; Referring Provider Specialist; Visit Provider Specialist
DX: O16.3 Unspecified maternal hypertension, third trimester (principal); O24.415 Gestational diabetes mellitus in pregnancy, controlled by oral hypoglycemic drugs; O09.523 Supervision of elderly multigravida, third trimester; O26.23 Pregnancy care for patient with recurrent pregnancy loss, third trimester; Z3A.35 35 weeks gestation of pregnancy
CPT/HCPCS: 36415; 59025; 82570; 84156; 84450; 84550; 85025; G0378; G0379

== ENCOUNTER 2019-12-29 10:13 | Outpatient (CLI) | payer OTHER, MEDICAID, SELFPAY ==
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
[2019-12-29 11:44] LABS: Add Manual Diff / Slide Review NO; Basophils Absolute Auto 0 /uL (0-100); Basophils Percent Auto 0.2 % (0-2); Eosinophils Absolute Auto 100 /uL (0-450); Eosinophils Percent Auto 0.9 % (2-4); Hematocrit 36.8 % (36-46); Hemoglobin 12.5 g/dL (12.0-16.0); Lymphocytes Absolute Auto 1500 /uL (1100-4500); Lymphocytes Percent Auto 14.8 % (25-40); Mean Corpuscular HGB Conc 34.1 % (30-36); Mean Corpuscular Hemoglobin 30.6 PG (26-34); Mean Corpuscular Volume 89.7 fL (80-100); Monocytes Absolute Auto 700 /uL (0-900); Monocytes Percent Auto 6.9 % (3-14); Neutrophils Absolute Auto 7700 /uL (1500-7000); Neutrophils Percent Auto 77.2 % (50-75); Platelet Count 182 X10^3/uL (150-400); Red Cell Distribution Width 13.4 % (11.6-14.8); White Blood Cell Count 9.9 X10^3/uL (4.5-11.0)
[2019-12-29 11:55] LABS: Alanine Aminotransferase 13 IU/L (<35); Albumin 3.3 g/dL (3.5-5.0); Albumin Globulin Ratio 1.1 (1.0-2.8); Alkaline Phosphatase 94 U/L (38-126); Aspartate Aminotransferase 19 IU/L (14-36); BUN Creatinine Ratio 21.2 (6-22); Bilirubin Total 0.4 mg/dL (0.2-1.3); Blood Urea Nitrogen 7 mg/dL (7-17); Calcium 9.2 mg/dL (8.4-10.2); Carbon Dioxide 21 mmol/L (22-32); Chloride 107 mmol/L (98-107); Estimated Glomerular Filt Rate > 60.0 mL/min (>60); Globulin 3.1 g/dL (1.7-4.1); Glucose 108 mg/dL (70-100); HEMOLYSIS < 15 (0-50); Lactate Dehydrogenase 343 U/L (313-618); Potassium 3.7 mmol/L (3.4-5.1); Sodium 135 mmol/L (137-145); Total Protein 6.4 g/dL (6.3-8.2); Uric Acid 3.8 mg/dL (2.5-6.2)
[2019-12-29 12:00] LABS: Creatinine Urine Random 87.5 mg/dL; Protein (Total) Urine Random 10 mg/dL (0-12); Protein Creatinine Ratio Urine 0.11 GRAM/24H
== END 2019-12-29 12:10 | disposition home or self-care (01) ==
LOC: LABOR 12:09 → OB 01-01 11:00
PROVIDERS: PCP Physician Assistant Medical; Referring Provider Obstetrics & Gynecology; Visit Provider Obstetrics & Gynecology
DX: O16.3 Unspecified maternal hypertension, third trimester (principal); O24.415 Gestational diabetes mellitus in pregnancy, controlled by oral hypoglycemic drugs; O09.523 Supervision of elderly multigravida, third trimester; O26.23 Pregnancy care for patient with recurrent pregnancy loss, third trimester; Z3A.35 35 weeks gestation of pregnancy
CPT/HCPCS: 36415; 59025; 80053; 82570; 83615; 84156; 84550; 85025; G0378; G0379

== ENCOUNTER 2019-12-31 16:12 | Outpatient (CLI) | payer OTHER, MEDICAID, SELFPAY | END 2019-12-31 16:40 | disposition home or self-care (01) | LOC: OB 01-01 11:01 | PROVIDERS: PCP Physician Assistant Medical; Referring Provider Obstetrics & Gynecology; Visit Provider Obstetrics & Gynecology | DX: O13.3 Gestational [pregnancy-induced] hypertension without significant proteinuria, third trimester (principal); O24.419 Gestational diabetes mellitus in pregnancy, unspecified control; O09.523 Supervision of elderly multigravida, third trimester; O26.23 Pregnancy care for patient with recurrent pregnancy loss, third trimester; Z3A.35 35 weeks gestation of pregnancy | CPT/HCPCS: 59025; G0378; G0379 ==

== ENCOUNTER → 2020-01-01 12:14 | Outpatient (CLI) | payer OTHER, MEDICAID, SELFPAY ==
[2020-01-02 13:22] LABS: Strep Grp B PCR NEG for Grp B Strep
== END ==
PROVIDERS: PCP Physician Assistant Medical; Visit Provider Obstetrics & Gynecology
DX: Z34.83 Encounter for supervision of other normal pregnancy, third trimester (principal); Z3A.36 36 weeks gestation of pregnancy
CPT/HCPCS: 87653

== ENCOUNTER 2020-01-01 12:29 | Outpatient (CLI) | payer OTHER, MEDICAID, SELFPAY ==
[2020-01-01 13:15] LABS: Add Manual Diff / Slide Review NO; Basophils Absolute Auto 0 /uL (0-100); Basophils Percent Auto 0.2 % (0-2); Eosinophils Absolute Auto 100 /uL (0-450); Eosinophils Percent Auto 0.8 % (2-4); Hematocrit 35.7 % (36-46); Hemoglobin 11.9 g/dL (12.0-16.0); Lymphocytes Absolute Auto 1700 /uL (1100-4500); Lymphocytes Percent Auto 17.5 % (25-40); Mean Corpuscular HGB Conc 33.4 % (30-36); Mean Corpuscular Hemoglobin 30.2 PG (26-34); Mean Corpuscular Volume 90.6 fL (80-100); Monocytes Absolute Auto 900 /uL (0-900); Neutrophils Absolute Auto 7000 /uL (1500-7000); Neutrophils Percent Auto 72.5 % (50-75); Platelet Count 192 X10^3/uL (150-400); Red Blood Cell Count 3.94 X10^6/uL (4.0-5.2); Red Cell Distribution Width 13.5 % (11.6-14.8); White Blood Cell Count 9.7 X10^3/uL (4.5-11.0)
[2020-01-01 13:24] LABS: Aspartate Aminotransferase 18 IU/L (14-36); BUN Creatinine Ratio 21.1 (6-22); Blood Urea Nitrogen 8 mg/dL (7-17); Estimated Glomerular Filt Rate > 60.0 mL/min (>60); Uric Acid 3.5 mg/dL (2.5-6.2)
[2020-01-01 14:12] LABS: Creatinine Urine Random 141.6 mg/dL; Protein (Total) Urine Random 9 mg/dL (0-12); Protein Creatinine Ratio Urine 0.06 GRAM/24H
== END 2020-01-01 14:28 | disposition home or self-care (01) ==
LOC: LABOR 13:53 → OB 01-02 10:01
PROVIDERS: PCP Physician Assistant Medical; Referring Provider Obstetrics & Gynecology; Visit Provider Obstetrics & Gynecology
DX: O24.419 Gestational diabetes mellitus in pregnancy, unspecified control (principal); O13.3 Gestational [pregnancy-induced] hypertension without significant proteinuria, third trimester; O09.523 Supervision of elderly multigravida, third trimester; O26.23 Pregnancy care for patient with recurrent pregnancy loss, third trimester; Z3A.36 36 weeks gestation of pregnancy
CPT/HCPCS: 36415; 59025; 82570; 84156; 84450; 84550; 85025; 87653; G0378; G0379

== ENCOUNTER 2020-01-04 12:08 | Outpatient (CLI) | payer OTHER, MEDICAID, SELFPAY ==
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
== END 2020-01-04 12:48 | disposition home or self-care (01) ==
LOC: OB 01-05 12:41
PROVIDERS: PCP Physician Assistant Medical; Referring Provider Obstetrics & Gynecology; Visit Provider Obstetrics & Gynecology
DX: O24.414 Gestational diabetes mellitus in pregnancy, insulin controlled (principal); O13.3 Gestational [pregnancy-induced] hypertension without significant proteinuria, third trimester; O09.523 Supervision of elderly multigravida, third trimester; O26.23 Pregnancy care for patient with recurrent pregnancy loss, third trimester; Z3A.36 36 weeks gestation of pregnancy
CPT/HCPCS: 59025; G0378; G0379

== ENCOUNTER 2020-01-12 11:34 | Outpatient (CLI) | payer OTHER, MEDICAID, SELFPAY ==
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
== END 2020-01-12 12:19 | disposition home or self-care (01) ==
LOC: LABOR 12:17 → OB 01-15 15:37
PROVIDERS: PCP Physician Assistant Medical; Referring Provider Obstetrics & Gynecology; Visit Provider Obstetrics & Gynecology
DX: O24.414 Gestational diabetes mellitus in pregnancy, insulin controlled (principal); O13.3 Gestational [pregnancy-induced] hypertension without significant proteinuria, third trimester; O09.523 Supervision of elderly multigravida, third trimester; O26.23 Pregnancy care for patient with recurrent pregnancy loss, third trimester; Z3A.37 37 weeks gestation of pregnancy
CPT/HCPCS: 59025; G0378; G0379

== ENCOUNTER → 2020-01-23 12:16 | Outpatient (CLI) | payer OTHER, MEDICAID, SELFPAY ==
[2020-01-23 13:19] LABS: Add Manual Diff / Slide Review NO; Basophils Absolute Auto 100 /uL (0-100); Basophils Percent Auto 0.6 % (0-2); Eosinophils Absolute Auto 400 /uL (0-450); Hematocrit 31.2 % (36-46); Hemoglobin 10.5 g/dL (12.0-16.0); Lymphocytes Absolute Auto 1700 /uL (1100-4500); Lymphocytes Percent Auto 22.2 % (25-40); Mean Corpuscular HGB Conc 33.7 % (30-36); Mean Corpuscular Hemoglobin 30.7 PG (26-34); Monocytes Absolute Auto 700 /uL (0-900); Monocytes Percent Auto 8.7 % (3-14); Neutrophils Absolute Auto 4900 /uL (1500-7000); Neutrophils Percent Auto 63.5 % (50-75); Platelet Count 283 X10^3/uL (150-400); Red Blood Cell Count 3.42 X10^6/uL (4.0-5.2); Red Cell Distribution Width 13.8 % (11.6-14.8); White Blood Cell Count 7.7 X10^3/uL (4.5-11.0)
[2020-01-23 13:43] LABS: Alanine Aminotransferase 38 IU/L (<35); Albumin 3.3 g/dL (3.5-5.0); Albumin Globulin Ratio 1.2 (1.0-2.8); Alkaline Phosphatase 83 U/L (38-126); Aspartate Aminotransferase 32 IU/L (14-36); BUN Creatinine Ratio 21.8 (6-22); Bilirubin Total 0.4 mg/dL (0.2-1.3); Blood Urea Nitrogen 12 mg/dL (7-17); Calcium 8.7 mg/dL (8.4-10.2); Carbon Dioxide 25 mmol/L (22-32); Chloride 109 mmol/L (98-107); Estimated Glomerular Filt Rate > 60.0 mL/min (>60); Globulin 2.8 g/dL (1.7-4.1); HEMOLYSIS < 15 (0-50); Lactate Dehydrogenase 533 U/L (313-618); Potassium 4.4 mmol/L (3.4-5.1); Sodium 139 mmol/L (137-145); Total Protein 6.1 g/dL (6.3-8.2); Uric Acid 6.2 mg/dL (2.5-6.2)
[2020-01-23 13:59] LABS: Glucose 84 mg/dL (70-100)
== END ==
PROVIDERS: PCP Physician Assistant Medical; Referring Provider Obstetrics & Gynecology; Visit Provider Obstetrics & Gynecology
DX: O16.5 Unspecified maternal hypertension, complicating the puerperium (principal)
CPT/HCPCS: 36415; 80053; 83615; 84550; 85025

== ENCOUNTER → 2021-02-05 12:07 | Outpatient (CLI) | payer OTHER, MEDICAID, SELFPAY ==
--- NOTE | 2021-02-05 12:07 | DI.US.S_ITS ---
PROCEDURE: US PELVIC COMPLETE INDICATIONS: EXCESSIVE BLEEDING TECHNIQUE: Real-time scanning was performed of the pelvic organs, with image documentation. Additional endovaginal scanning was necessary due to incomplete visualization of the adnexal and endometrial structures by transabdominal scanning. The exact endometrial margins are poorly visualized, likely due to overlying uterine fibroids causing myometrial heterogeneity.. COMPARISON: None. FINDINGS: Uterus: Uterus is anteverted and normal in size at 4.2 x 5.5 x 12.0 cm. The endometrium measures 10.8 mm in combined thickness. Ovaries: Ovaries bilaterally appear normal in size measuring 3.4 x 2.9 x 1.9 cm on the right and 3.8 x 2.9 x 2.5 cm on the left. Other: No pathologic free abdominal or pelvic fluid. IMPRESSION: There is relatively poor visualization of the endometrial canal and the myometrial morphology and echotexture is heterogeneous. The appearance is most likely a sequela of scattered uterine fibroids isoechoic to the myometrium. A discrete abnormal endometrial mass or abnormal fluid collection is not seen but given the limitations of the quality of visualization a low threshold for performing endometrial biopsy likely is warranted. Dictated by: Eliezer Rowe M.D. on 02/05/2021 at 16:14 Approved by: Eliezer Rowe M.D. on 02/05/2021 at 16:16
== END ==
PROVIDERS: PCP Registered Nurse Diabetes Educator; Referring Provider Obstetrics & Gynecology; Visit Provider Obstetrics & Gynecology
DX: N92.0 Excessive and frequent menstruation with regular cycle (principal)
CPT/HCPCS: 76856

== ENCOUNTER → 2021-04-17 11:26 | Outpatient (CLI) | payer OTHER, MEDICAID, SELFPAY ==
--- NOTE | 2021-04-17 11:27 | DI.RAD.S_ITS ---
PROCEDURE: XR LUMBAR SPINE MIN 4V INDICATIONS: LBP with RLE sciatica, chronic TECHNIQUE: 5 views of the lumbar spine were acquired, including bilateral oblique views. COMPARISON: March 14, 2019. FINDINGS: Bones: 5 nonrib-bearing vertebrae are present. Irregularity of the L5 superior endplate, compatible with a limbus vertebra. There is normal bony alignment. No vertebral body compression fractures. No suspicious bony lesions. Soft tissues: Overlying bowel gas pattern is normal. No suspicious soft tissue calcifications. Oblique images: No pars defects. IMPRESSION: No acute osseous abnormality. Dictated by: Phi Samuels M.D. on 04/17/2021 at 12:48 Approved by: Phi Samuels M.D. on 04/17/2021 at 12:52
[2021-04-17 13:08] LABS: Hematocrit 42.5 % (36-46); Hemoglobin 14.4 g/dL (12.0-16.0); Mean Corpuscular HGB Conc 33.9 % (30-36); Mean Corpuscular Hemoglobin 30.1 PG (26-34); Mean Corpuscular Volume 88.7 fL (80-100); Platelet Count 197 X10^3/uL (150-400); Red Blood Cell Count 4.79 X10^6/uL (4.0-5.2); Red Cell Distribution Width 12.5 % (11.6-14.8); White Blood Cell Count 6.4 X10^3/uL (4.5-11.0)
[2021-04-17 13:23] LABS: Hemoglobin A1C% w Est Avg Glu 5.9 % (4.0-6.0)
[2021-04-17 14:01] LABS: Alanine Aminotransferase 17 IU/L (<35); Albumin 4.4 g/dL (3.5-5.0); Albumin Globulin Ratio 1.6 (1.0-2.8); Alkaline Phosphatase 55 U/L (38-126); Aspartate Aminotransferase 20 IU/L (14-36); BUN Creatinine Ratio 22.8 (6-22); Bilirubin Total 0.7 mg/dL (0.2-1.3); Blood Urea Nitrogen 13 mg/dL (7-17); Calcium 9.6 mg/dL (8.4-10.2); Carbon Dioxide 27 mmol/L (22-32); Chloride 102 mmol/L (98-107); Cholesterol 221 mg/dL (140-199); Estimated Glomerular Filt Rate > 60.0 mL/min (>60); Globulin 2.7 g/dL (1.7-4.1); Glucose 100 mg/dL (70-100); HDL Cholesterol 57 mg/dL (40-60); HEMOLYSIS < 15 (0-50); LDL Cholesterol Calculated 145 mg/dL (<100); Potassium 4.6 mmol/L (3.4-5.1); Sodium 139 mmol/L (137-145); Total Protein 7.1 g/dL (6.3-8.2); Triglycerides 97 mg/dL (35-150)
[2021-04-17 14:24] LABS: TSH w/ Reflex to FT4 0.41 uIU/mL (0.47-4.68)
[2021-04-18 12:17] LABS: SARS CoV19 IgG Positive (Negative)
[2021-04-18 19:24] LABS: Free T3, Triiodothyronine Free 3.46 pg/mL (2.77-5.27)
== END ==
PROVIDERS: PCP Registered Nurse Diabetes Educator; Referring Provider Registered Nurse Diabetes Educator; Visit Provider Registered Nurse Diabetes Educator
DX: M54.40 Lumbago with sciatica, unspecified side (principal); E66.9 Obesity, unspecified; R74.8 Abnormal levels of other serum enzymes; E78.5 Hyperlipidemia, unspecified; R73.03 Prediabetes; R79.89 Other specified abnormal findings of blood chemistry; Z86.32 Personal history of gestational diabetes
CPT/HCPCS: 36415; 72110; 80053; 80061; 83036; 84439; 84443; 84481; 85027; 86769

== ENCOUNTER → 2021-05-14 08:55 | Outpatient (CLI) | payer OTHER, MEDICAID, SELFPAY ==
--- NOTE | 2021-05-14 08:56 | DI.MRI.S_ITS ---
PROCEDURE: MR BRAIN (PITUITARY) WWO CON INDICATIONS: Concern for central hypothyroidism TECHNIQUE: Noncontrast sagittal and axial FLAIR, axial gradient echo, axial diffusion and ADC through the brain. Thin-slice sagittal and coronal T1 spin echo, coronal T2 fast spin echo through the pituitary. After the administration contrast, optional dynamic coronal T1 spin echo, thin-slice coronal and sagittal T1 spin echo images through the pituitary fossa; axial T1 spin echo with fat saturation through the brain. COMPARISON: None. FINDINGS: Image quality: Excellent. Pituitary Gland: Pituitary gland has normal size and contour. Posterior pituitary bright spot is normally situated. Pituitary infundibulum is midline and demonstrates normal thickness. No sellar suprasellar masses identified. Optic chiasm is normal. Pituitary gland demonstrates normal postcontrast enhancement. CSF Spaces: Ventricles are normal in size and shape. Basal cisterns are patent. No extra-axial fluid collections. Brain: No intracranial bleeds or mass effects. No abnormal intracranial enhancement. Cummings-white matter interface is intact. Diffusion weighted images demonstrate no acute ischemic insults. Brainstem is normal. Normal intravascular flow voids are present. Dural sinuses demonstrate normal postcontrast enhancement. Skull and face: Calvarial marrow is normal in signal. Orbits appear normal. Sinuses: Sinuses and mastoids are clear. IMPRESSION: Normal examination without evidence of pituitary microadenoma. Dictated by: Roseann Chatman MD, PhD on 05/14/2021 at 11:55 Approved by: Roseann Chatman MD, PhD on 05/14/2021 at 12:02
== END ==
PROVIDERS: PCP Registered Nurse Diabetes Educator; Referring Provider Registered Nurse Diabetes Educator; Visit Provider Registered Nurse Diabetes Educator
DX: R79.89 Other specified abnormal findings of blood chemistry (principal)
CPT/HCPCS: 70553; A9579

== ENCOUNTER → 2021-09-08 17:18 | Outpatient (CLI) | payer OTHER, MEDICAID, SELFPAY ==
[2021-09-08 19:44] LABS: Free T3, Triiodothyronine Free 3.78 pg/mL (2.77-5.27); Free T4, Direct Thyroxine 0.88 ng/dL (0.78-2.19)
[2021-09-08 19:58] LABS: Thyroid Stimulating Hormone 0.654 uIU/mL (0.47-4.68)
== END ==
PROVIDERS: PCP Registered Nurse Diabetes Educator; Referring Provider Registered Nurse Diabetes Educator; Visit Provider Registered Nurse Diabetes Educator
DX: R79.89 Other specified abnormal findings of blood chemistry (principal)
CPT/HCPCS: 36415; 84439; 84443; 84481

== ENCOUNTER → 2021-11-29 09:19 | Outpatient (CLI) | payer OTHER, MEDICAID, SELFPAY ==
[2021-11-29 11:59] LABS: TSH w/ Reflex to FT4 0.44 uIU/mL (0.47-4.68)
[2021-11-30 15:56] LABS: Hemoglobin A1C% w Est Avg Glu 6.2 % (4.0-6.0)
== END ==
PROVIDERS: PCP Registered Nurse Diabetes Educator; Referring Provider Registered Nurse Diabetes Educator; Visit Provider Registered Nurse Diabetes Educator
DX: E03.9 Hypothyroidism, unspecified (principal); R68.89 Other general symptoms and signs; R73.09 Other abnormal glucose; Z68.41 Body mass index [BMI] 40.0-44.9, adult
CPT/HCPCS: 36415; 83036; 84439; 84443

== ENCOUNTER → 2021-12-10 16:56 | Outpatient (CLI) | payer OTHER, MEDICAID, SELFPAY ==
--- NOTE | 2021-12-10 | DI.US.S_ITS ---
PROCEDURE: US PELVIC COMPLETE INDICATIONS: UNUSAL BLEEDING TECHNIQUE: Real-time scanning was performed of the pelvic organs, with image documentation. Additional endovaginal scanning was necessary due to incomplete visualization of the adnexal and endometrial structures by transabdominal scanning. COMPARISON: [facility], , US PELVIC COMPLETE, 02/05/2021, 11:34. [facility], , US PELVIC COMPLETE, 09/08/2021, 17:14. [facility], [place], US PELVIC COMPLETE, 09/08/2021, 15:56. FINDINGS: Uterus: Uterus is anteverted and normal in size at 9.9 x 6.5 x 6.9 cm. The myometrium is heterogeneous. The endometrium measures 19.9 mm combined thickness. There is a small amount of fluid within the endometrial cavity. A 3 x 3 x 4 mm cyst is seen within the myometrium in the lower uterine segment. Ovaries: The right ovary measures 2.1 x 2.1 x 2.2 cm. The left ovary measures 3.8 x 2.8 x 2.5 cm. The ovaries have a normal sonographic appearance. Ovaries are suboptimally visualized due to adjacent bowel loops Other: No pathologic free abdominal or pelvic fluid. IMPRESSION: 1. Thickened endometrium measuring 19.9 mm in thickness. The finding may be secondary to endometrial hyperplasia but endometrial neoplasm cannot be excluded. Recommend clinical correlation and follow-up. 2. Heterogeneous myometrium. There is a small cyst within the myometrium in the lower uterine segment. 3. Ovaries are suboptimally visualized. We strive to produce accurate, complete, and clear reports of imaging services. To assist us in improving patient care, this report was composed using standard report templates and voice recognition software. Therefore, it may contain abnormal punctuation, insertions and/or omissions. Occasional wrong-word or sound-alike substitutions may occur. Though we review the report and make efforts to correct it, we do recommend that the report be read carefully in proper context to recognize any text inaccuracies. Dictated by: Andrews Segovia M.D. on 12/11/2021 at 17:37 Approved by: Andrews Segovia M.D. on 12/11/2021 at 21:23
== END ==
PROVIDERS: PCP Registered Nurse Diabetes Educator
DX: N93.9 Abnormal uterine and vaginal bleeding, unspecified (principal); R93.89 Abnormal findings on diagnostic imaging of other specified body structures; N85.8 Other specified noninflammatory disorders of uterus
CPT/HCPCS: 76830; 76856

== ENCOUNTER 2022-03-31 14:17 | Emergency (ER) | payer OTHER, MEDICAID, SELFPAY ==
[2022-03-31 14:20] VITALS: BP 126/93; PULSE 77; RESP 15; TEMP 36.6; O2SAT 100; BMI 37.4
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
[2022-03-31] MEDS: SODIUM CHLORIDE 0.9% 1,000 ML 1000 ML IV (17:49)
[2022-03-31] MEDS: ONDANSETRON 4 MG/2 ML INJ IV (17:50)
[2022-03-31 18:07] LABS: Add Manual Diff / Slide Review NO; Basophils Absolute Auto 0 /uL (0-100); Basophils Percent Auto 0.4 % (0-2); Eosinophils Absolute Auto 500 /uL (0-450); Eosinophils Percent Auto 6.7 % (2-4); Hematocrit 43.2 % (36-46); Hemoglobin 14.7 g/dL (12.0-16.0); Lymphocytes Absolute Auto 2300 /uL (1100-4500); Lymphocytes Percent Auto 30.8 % (25-40); Mean Corpuscular Hemoglobin 29.8 PG (26-34); Mean Corpuscular Volume 87.9 fL (80-100); Monocytes Absolute Auto 600 /uL (0-900); Monocytes Percent Auto 7.3 % (3-14); Neutrophils Absolute Auto 4200 /uL (1500-7000); Neutrophils Percent Auto 54.8 % (50-75); Platelet Count 234 X10^3/uL (150-400); Red Blood Cell Count 4.92 X10^6/uL (4.0-5.2); Red Cell Distribution Width 12.9 % (11.6-14.8); White Blood Cell Count 7.6 X10^3/uL (4.5-11.0)
[2022-03-31 18:28] LABS: Alanine Aminotransferase 166 IU/L (<35); Albumin 4.3 g/dL (3.5-5.0); Albumin Globulin Ratio 1.2 (1.0-2.8); Alkaline Phosphatase 82 U/L (38-126); Aspartate Aminotransferase 69 IU/L (14-36); BUN Creatinine Ratio 13.6 (6-22); Bilirubin Total 0.3 mg/dL (0.2-1.3); Blood Urea Nitrogen 9 mg/dL (7-17); Calcium 7.9 mg/dL (8.4-10.2); Carbon Dioxide 26 mmol/L (22-32); Chloride 103 mmol/L (98-107); Estimated Glomerular Filt Rate > 60 mL/min (>60); Globulin 3.5 g/dL (1.7-4.1); Glucose 113 mg/dL (70-100); HEMOLYSIS < 15 (0-50); Potassium 4.1 mmol/L (3.4-5.1); Sodium 140 mmol/L (137-145); Total Protein 7.8 g/dL (6.3-8.2)
[2022-03-31 18:29] LABS: Lactate (Lactic Acid) 0.9 mmol/L (0.7-2.1)
[2022-03-31 18:58] VITALS: BP 133/73; PULSE 74; RESP 16; TEMP 36.9; O2SAT 97
== END 2022-03-31 18:58 | disposition home or self-care (01) ==
PROVIDERS: Emergency Provider Physician Assistant; PCP Registered Nurse Diabetes Educator
DX: E86.0 Dehydration (principal)
CPT/HCPCS: 36415; 80053; 83605; 85025; 96361; 96374; 99284; J2405

== ENCOUNTER → 2022-06-09 11:23 | Outpatient (CLI) | payer OTHER, MEDICAID, SELFPAY ==
[2022-06-09 12:22] LABS: Hemoglobin A1C% w Est Avg Glu 6.2 % (4.0-6.0)
[2022-06-09 12:34] LABS: Alanine Aminotransferase 26 IU/L (<35); Albumin 4.2 g/dL (3.5-5.0); Albumin Globulin Ratio 1.4 (1.0-2.8); Alkaline Phosphatase 54 U/L (38-126); Aspartate Aminotransferase 17 IU/L (14-36); BUN Creatinine Ratio 16.7 (6-22); Bilirubin Total 0.4 mg/dL (0.2-1.3); Blood Urea Nitrogen 11 mg/dL (7-17); Calcium 9.1 mg/dL (8.4-10.2); Carbon Dioxide 24 mmol/L (22-32); Chloride 102 mmol/L (98-107); Cholesterol 186 mg/dL (140-199); Estimated Glomerular Filt Rate > 60 mL/min (>60); Glucose 152 mg/dL (70-100); HDL Cholesterol 51 mg/dL (40-60); HEMOLYSIS < 15 (0-50); LDL Cholesterol Calculated 100 mg/dL (<100); Potassium 4.1 mmol/L (3.4-5.1); Sodium 136 mmol/L (137-145); Total Protein 7.2 g/dL (6.3-8.2); Triglycerides 177 mg/dL (35-150)
[2022-06-09 12:48] LABS: Free T3, Triiodothyronine Free 3.93 pg/mL (2.77-5.27); Free T4, Direct Thyroxine 0.89 ng/dL (0.78-2.19)
[2022-06-09 13:03] LABS: Thyroid Stimulating Hormone 0.348 uIU/mL (0.47-4.68)
== END ==
PROVIDERS: PCP Registered Nurse Diabetes Educator; Referring Provider Registered Nurse Diabetes Educator; Visit Provider Registered Nurse Diabetes Educator
DX: E78.5 Hyperlipidemia, unspecified (principal); R73.01 Impaired fasting glucose; R79.89 Other specified abnormal findings of blood chemistry
CPT/HCPCS: 36415; 80053; 80061; 83036; 84439; 84443; 84481